=== PATIENT | female | born 1960 | race Caucasian/White ===

== ENCOUNTER 2023-11-21 06:09 | Day surgery (SDC) | payer OTHER, SELFPAY ==
[2023-11-21 06:29] VITALS: BMI 21.6
[2023-11-21 06:42] VITALS: BP 154/67
[2023-11-21 06:46] VITALS: BP 154/67
--- NOTE | 2023-11-21 07:01 | ITS.CL.CATH ---
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
Cardiac Catheterization
Procedure Report:
CARDIAC CATHETERIZATION REPORT
Date of Procedure: 11/21/2023
Referring: Hernan Ruvalcaba MD
Indication: Chest pain
HEMODYNAMIC DATA
AO: 129/64
LV: 129/15
LEFT VENTRICULOGRAPHY: Normal left ventricular wall motion with EF 68%
CORONARY ANGIOGRAPHY
Dominance: Right
Left Main: Normal
LAD: Normal
Circumflex: Normal
RCA: Normal
Closure Device: None-the procedure was performed via the right radial artery. The Alexi's test was normal prior to the procedure.
Radiation (mGy): 40.1
DAP (cm2.Gy): 3.9
Fluoroscopy time: 0.9 minutes
CONCLUSIONS
1: Normal left ventricular function with EF 68%
2: Normal coronary arteries
Copy to: Hernan Ruvalcaba MD, Sofia Jacinto MD
Beny Hall MD, [facility]
[2023-11-21] MEDS: LOW STRENGTH ASPIRIN 81 MG PO (07:17)
[2023-11-21] MEDS: NSS 150 ML IV (07:18)
[2023-11-21 08:03] VITALS: BP 105/50; BP 150/50
[2023-11-21 10:05] VITALS: BP 120/57
== END 2023-11-21 10:30 | disposition home or self-care (01) ==
LOC: CATH 06:09
PROVIDERS: ATTENDING PHYSICIAN Internal Medicine Cardiovascular Disease; FAMILY PHYSICIAN Internal Medicine
DX: R07.9 Chest pain, unspecified (principal); I47.10 Supraventricular tachycardia, unspecified; I47.20 Ventricular tachycardia, unspecified; I10 Essential (primary) hypertension; E78.5 Hyperlipidemia, unspecified; E88.810 Metabolic syndrome; Z82.49 Family history of ischemic heart disease and other diseases of the circulatory system; Z79.82 Long term (current) use of aspirin
CPT/HCPCS: 93458; C1894; Q9967